=== PATIENT | male | born 1975 | race Caucasian/White ===

== ENCOUNTER 2017-01-11 13:38 | Emergency (ER) | payer SELFPAY ==
[~2017-01-11] VITALS: Ht 182.9 cm; Wt 85.0 kg
[2017-01-11 13:40] VITALS: BP 131/77; PULSE 72; RESP 15; TEMP 98.8; O2SAT 98
--- NOTE | 2017-01-11 13:51 | PD ---
Physical Exam Time Seen by Provider: 13:49 Narrative 41 y/o male here for evaluation of epigastric abdominal pain, n/v for 5 days. He has had pancreatitis in the past, this feels similar. Vital signs reviewed. Seen at triage desk. Awaiting bed placement. Data Data Last Documented VS Vital Signs Date Time Temp Pulse Resp B/P Pulse Ox O2 Delivery O2 Flow Rate FiO2 01/11/17 13:40 98.8 72 15 131/77 98 MDM Medical Record Reviewed: Yes Supervised Visit with GERRY: No Lazarus Gracia Jan 11, 2017 13:51
[2017-01-11 16:31] LABS: BASOPHIL # 0.1 TH/MM3 (0-0.2); BASOPHIL % 0.8 % (0.0-2.0); EOSINOPHIL # 0.3 TH/MM3 (0-0.4); EOSINOPHIL % 4.5 % (0.0-4.0); HEMATOCRIT 42.6 % (39.0-51.0); HEMO FLAGS DIFF FINAL; LYMPH % 36.6 % (9.0-44.0); LYMPHOCYTE # 2.8 TH/MM3 (1.0-4.8); MEAN CELL VOLUME 90.6 FL (80.0-100.0); MEAN CORPUSCULAR HEMOGLOBIN 31.2 PG (27.0-34.0); MEAN CORPUSCULAR HGB CONC 34.4 % (32.0-36.0); MONO % 5.3 % (0.0-8.0); NEUT % 52.8 % (16.0-70.0); PLATELET COUNT 208 TH/MM3 (150-450); RED CELL DISTRIBUTION WIDTH 15.8 % (11.6-17.2); WHITE BLOOD COUNT 7.5 TH/MM3 (4.0-11.0)
[2017-01-11 16:59] LABS: ALT (GPT) 434 U/L (12-78); ANION GAP 4 MEQ/L (5-15); AST (GOT) 286 U/L (15-37); BICARBONATE 28.6 MEQ/L (21.0-32.0); BLOOD UREA NITROGEN 11 MG/DL (7-18); CHLORIDE 104 MEQ/L (98-107); POTASSIUM 3.9 MEQ/L (3.5-5.1); SODIUM (NA) 137 MEQ/L (136-145)
[2017-01-11 17:01] LABS: ALKALINE PHOSPHATASE 117 U/L (45-117); TOTAL BILIRUBIN ADULT 0.3 MG/DL (0.2-1.0)
--- NOTE | 2017-01-11 17:02 | PD ---
HPI Chief Complaint: GI Complaint Time Seen by Provider: 17:01 Travel History International Travel<30 days: No Contact w/Intl Traveler<30days: No Traveled to known affect area: No History of Present Illness HPI 41 YO male presents to the ED for evaluation of 5 day history of epigastric pain, nausea, NBNB vomiting, gold colored stools. Patient endorses history of pancreatitis and "gallbladder sludge." States these symptoms are similar to previous episodes. Denies fever, dysuria, flank pain. Endorses chronic back pain , no worsened today. Endorses gastroscopy ~ 5 years ago. Denies ETOH or IVD use. PFSH Social History Alcohol Use: No Tobacco Use: No Substance Use: No Allergies-Medications (Allergen,Severity, Reaction): Coded Allergies: No Known Allergies (Unverified , 01/11/17) Reported Meds & Prescriptions Reported Meds & Active Scripts Active Reported Mobic (Meloxicam) 15 Mg Tab 15 Mg PO DAILY Valium (Diazepam) 5 Mg Tab 5 Mg PO BID PRN Methadone (Methadone HCl) 10 Mg Tab 20 Mg PO TID Review of Systems Except as stated in HPI: all other systems reviewed are Neg Physical Exam Narrative GENERAL: Well-nourished, well-developed white male in no acute distress. SKIN: Focused skin assessment warm/dry. Tanned, no jaundice. HEAD: Normocephalic. EYES: No scleral icterus. No injection or drainage. NECK: Supple, trachea midline. No JVD or lymphadenopathy. CARDIOVASCULAR: Regular rate and rhythm without murmurs, gallops, or rubs. RESPIRATORY: Breath sounds clear and equal bilaterally. No accessory muscle use. GASTROINTESTINAL: Abdomen soft, nondistended. Tender to palpation in the right upper quadrant, epigastric area and left upper quadrant. No hepatosplenomegaly noted. Active bowel sounds. MUSCULOSKELETAL: No cyanosis, or edema. Patient is ambulatory and moves the extremities spontaneously. BACK: Nontender without obvious deformity. No CVA tenderness. Data Data Last Documented VS Vital Signs Date Time Temp Pulse Resp B/P Pulse Ox O2 Delivery O2 Flow Rate FiO2 01/11/17 17:12 97.9 64 21 111/74 96 Room Air Orders Complete Blood Count With Diff (01/11/17 13:52) Comprehensive Metabolic Panel (01/11/17 13:52) Lipase (01/11/17 13:52) Urinalysis - C+S If Indicated (01/11/17 13:52) ^ Insert Iv (01/11/17 17:10) Sodium Chlor 0.9% 1000 Ml Inj (Ns 1000 M (01/11/17 17:15) Ondansetron Inj (Zofran Inj) (01/11/17 17:15) Us Abdomen Gallbladder (01/11/17 17:12) Labs Laboratory Tests Test 01/11/17 01/11/17 14:24 16:15 Urine Color YELLOW Urine Turbidity CLEAR Urine pH 5.5 Urine Specific [place] 1.016 Urine Protein NEG mg/dL Urine Glucose (UA) NEG mg/dL Urine Ketones NEG mg/dL Urine Occult Blood NEG Urine Nitrite NEG Urine Bilirubin NEG Urine Urobilinogen LESS THAN 2.0 MG/DL Urine Leukocyte Esterase NEG Urine WBC 1 /hpf Urine Mucus FEW /lpf Microscopic Urinalysis Comment CULT NOT INDICATED White Blood Count 7.5 TH/MM3 Red Blood Count 4.70 MIL/MM3 Hemoglobin 14.6 GM/DL Hematocrit 42.6 % Mean Corpuscular Volume 90.6 FL Mean Corpuscular Hemoglobin 31.2 PG Mean Corpuscular Hemoglobin 34.4 % Concent Red Cell Distribution Width 15.8 % Platelet Count 208 TH/MM3 Mean Platelet Volume 7.3 FL Neutrophils (%) (Auto) 52.8 % Lymphocytes (%) (Auto) 36.6 % Monocytes (%) (Auto) 5.3 % Eosinophils (%) (Auto) 4.5 % Basophils (%) (Auto) 0.8 % Neutrophils # (Auto) 4.0 TH/MM3 Lymphocytes # (Auto) 2.8 TH/MM3 Monocytes # (Auto) 0.4 TH/MM3 Eosinophils # (Auto) 0.3 TH/MM3 Basophils # (Auto) 0.1 TH/MM3 CBC Comment DIFF FINAL Differential Comment Sodium Level 137 MEQ/L Potassium Level 3.9 MEQ/L Chloride Level 104 MEQ/L Carbon Dioxide Level 28.6 MEQ/L Anion Gap 4 MEQ/L Blood Urea Nitrogen 11 MG/DL Creatinine 0.67 MG/DL Random Glucose 74 MG/DL Calcium Level 8.7 MG/DL Total Bilirubin 0.3 MG/DL Aspartate Amino Transf 286 U/L (AST/SGOT) Alanine Aminotransferase 434 U/L (ALT/SGPT) Alkaline Phosphatase 117 U/L Total Protein 8.3 GM/DL Albumin 3.6 GM/DL Lipase 2852 U/L [facility] Medical Decision Making Medical Screen Exam Complete: Yes Emergency Medical Condition: Yes Differential Diagnosis Pancreatitis versus cholecystitis versus common bile duct obstruction versus hepatitis versus Narrative Course 41 YO male presents to the ED for evaluation of 5 day history of epigastric pain, nausea, NBNB vomiting, glod colored stools. Patient endorses history of pancreatitis and "gallbladder sludge." States these symptoms are similar to previous episodes. Denies fever, dysuria, flank pain. Endorses chronic back pain , no worsened today. Endorses gastroscopy ~ 5 years ago. Denies EtOH use. Afebrile on presentation. Physical exam reveals a nontoxic-appearing white male in no acute distress. No scleral icterus. No jaundice. He is quite tender to palpation of the bilateral upper quadrants as well as the epigastric area. IV was established. Patient was administered 4 mg Zofran and 1 L normal saline bolus. He declined pain medications at this time, stating that he takes pain medications for chronic back issues. CBC: WBC 7.5. Hemoglobin 14.6. CMP: AST 286, ALT 434. Lipase 2852. UA: No culture indicated. Right upper quadrant ultrasound: Mildly distended common bile duct measuring ~6 mm, otherwise unremarkable per radiology read. I discussed the results of the workup with the patient. I recommended he be admitted to the hospital for MRCP or ERCP, pain control, monitoring. 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 I explained the risks of leaving, including cholangitis or even . The patient acknowledged these risks but still chose to leave AGAINST MEDICAL ADVICE. He states that he will return at a more convenient time. Diagnosis Primary Impression: Pancreatitis Qualified Code: K85.10 - Acute biliary pancreatitis, unspecified complication status Additional Impression: Elevated LFTs Disposition: AGAINST MEDICAL ADVICE Condition: Stable Meron Lisa Jan 11, 2017 17:01
[2017-01-11 17:12] VITALS: BP 111/74; PULSE 64; RESP 21; TEMP 97.9; O2SAT 96
[2017-01-11] MEDS ORDERED: ONDANSETRON HCL 4 MG/2 ML VIAL IV PUSH ONE (17:15)
[2017-01-11] MEDS ORDERED: SODIUM CHLOR 0.9% 1000 ML INJ 1,000 ML IV ONE (17:15)
[2017-01-11] MEDS ORDERED: DIAZ5 PO (17:20)
[2017-01-11] MEDS ORDERED: METH10TA PO (17:20)
[2017-01-11] MEDS ORDERED: MOBI15TA PO (17:20)
[2017-01-11 17:32] LABS: BLOOD, URINE NEG (NEG); COMMENT (UR) CULT NOT INDICATED; CULTURE IF INDICATED CULT NOT INDICATED; GLUCOSE,URINE NEG (NEG); KETONE, URINE NEG (NEG); MUCUS URINE FEW /lpf (OCC); NITRITE,URINE NEG (NEG); PH, URINE 5.5 (5.0-8.5); URINE COLOR YELLOW (YELLW/STRAW)
--- NOTE | 2017-01-11 18:01 | RADRPT ---
EXAM DATE/TIME: 01/11/2017 17:36 [facility] COMPARISON: No previous studies available for comparison. INDICATIONS : Right upper quadrant pain. MEDICAL HISTORY : Herniated discs in neck. Bulging L5. Degenerative disc disease. Tobacco use. SURGICAL HISTORY : None. ENCOUNTER: Initial ACUITY: 4-6 days PAIN SCORE: 4/10 LOCATION: Right upper quadrant MEASUREMENTS: LIVER: 14.8 cm length COMMON DUCT: 6 mm RIGHT KIDNEY: 12.0 x 5.3 x 5.0 cm FINDINGS: LIVER: Normal echotexture without focal lesion or ductal dilatation. COMMON DUCT: Mildly distended for a patient this age. No stone demonstrated. GALLBLADDER: Contains no stones, demonstrates no wall thickening or pericholecystic fluid. PANCREAS: The visualized portions are within normal limits. RIGHT KIDNEY: No evidence of hydronephrosis, stone, or mass. CONCLUSION: Common bile duct mildly distended for patient this age, measures about 6 mm. Otherwise normal right u pper quadrant ultrasound. Master Brush MD on January 11, 2017 at 17:59 Board Certified Radiologist. This report was verified electronically.
== END 2017-01-11 19:04 | disposition left against medical advice (07) ==
LOC: NEPD 13:38
DX: K85.10 Biliary acute pancreatitis without necrosis or infection (principal); R79.89 Other specified abnormal findings of blood chemistry
CPT/HCPCS: 76705; 80053; 81001; 83690; 85025; 96361; 96374; 99285; J2405; J7030